=== PATIENT | male | born 1995 | race Caucasian/White ===

== ENCOUNTER 2018-10-31 03:08 | Emergency (ER) | payer BC ==
--- NOTE | 2018-10-31 03:54 | EDM.PDOC ---
ED HPI GENERAL MEDICAL PROBLEM - General Chief Complaint: Lower Extremity Injury/Pain Stated Complaint: MEDICAL Time Seen by Provider: 10/31/18 03:48 Source of Information: Reports: Patient, Family, RN Notes Reviewed History Limitations: Reports: No Limitations - History of Present Illness INITIAL COMMENTS - FREE TEXT/NARRATIVE: 23-year-old gentleman presents emergency department today with a large bruise to his right gluteal cleft he denies any trauma is unsure how this happened believes it was spontaneous it is painful Treatments NATURAL RESOURCES TECHNICIAN: Reports: Other (see below) Other Treatments NATURAL RESOURCES TECHNICIAN: none Right Lower Leg Pain Score (Numeric/FACES): 8 - Related Data Allergies Allergy/AdvReac Type Severity Reaction Status Date / Time amoxicillin Allergy Airway Verified 10/31/18 03:34 Tightness Home Meds: Home Meds NK [No Known Home Meds] 10/31/18 [History] Past Medical History HEENT History: Reports: Impaired Vision Musculoskeletal History: Reports: Fracture, Other (See Below) Other Musculoskeletal History: right hand fracture Neurological History: Reports: Concussion - Infectious Disease History Infectious Disease History: Reports: Chicken Pox - Past Surgical History GI Surgical History: Reports: Cholecystectomy Social & Family History - Tobacco Use Smoking Status *Q: Never Smoker - Caffeine Use Caffeine Use: Reports: Soda - Recreational Drug Use Recreational Drug Use: No Review of Systems - Review of Systems Review Of Systems: See Below Constitutional: Reports: No Symptoms Respiratory: Reports: No Symptoms Cardiovascular: Reports: No Symptoms Skin: Reports: Bruising ED EXAM, GENERAL - Physical Exam Exam: See Below Free Text/Narrative:: Examination of the integument system right gluteal cleft there is a fairly large firm tender hematoma there no draining is noted Exam Limited By: No Limitations General Appearance: Alert, WD/WN, No Apparent Distress Course - Vital Signs Last Recorded V/S: Last Vital Signs Temp 97.0 F 10/31/18 03:28 Pulse 111 H 10/31/18 03:28 Resp 20 10/31/18 03:28 BP 132/90 10/31/18 03:28 Pulse Ox 97 10/31/18 03:28 Departure - Departure Time of Disposition: 03:53 Disposition: Home, Self-Care 01 Condition: Fair Clinical Impression: Traumatic hematoma of buttock Qualifiers: Encounter type: initial encounter Qualified Code(s): S30.0XXA - Contusion of lower back and pelvis, initial encounter - Discharge Information Referrals: PCP,None [Primary Care Provider] - Additional Instructions: Please followup with your primary care provider in 3-5 days if not better, please call return to the emergency department with worsening of symptoms. - Assessment/Plan Plan: Assessment Acuity = acute Site and laterality = hematoma Etiology = unclear etiology Manifestations = none Location of injury = Home Lab values = none Plan Recommend follow-up primary care 3-5 days for reevaluation This note was dictated using [employer] voice recognition software please call with any questions on syntax or grammar.
== END 2018-10-31 04:07 | disposition home or self-care (01) ==
LOC: JP.ED 03:08
DX: S30.0XXA Contusion of lower back and pelvis, initial encounter (principal); X58.XXXA Exposure to other specified factors, initial encounter; Z88.1 Allergy status to other antibiotic agents
CPT/HCPCS: 99283